=== PATIENT | female | born 1990 | race Caucasian/White ===

== ENCOUNTER 2020-09-11 05:04 | Emergency (ER) | payer BC ==
[~2020-09-11] VITALS: Ht 165.1 cm; Wt 53.1 kg
--- NOTE | 2020-09-11 05:07 | NUR ---
PT AAOX4. BIBRA FROM HOME C/O PALPITATIONS. PLACED IN BED 10 ON MONITOR AND PULSE OX. AWAITING ER MD FOR EVAL AND ORDERS. NO ACUTE DISTRESS NOTED. RR EVEN AND UNLABORED.
--- NOTE | 2020-09-11 05:22 | NUR ---
LINE ESTABLISHED RAC 20G, BLOOD WORK COLLECTED, SENT TO LAB.
[2020-09-11 05:24] LABS: BASOPHILS % (AUTO) 0.7 % (0.0-2.0); EOSINOPHILS % (AUTO) 1.5 % (0.0-6.0); HEMATOCRIT 40 % (33-45); HEMOGLOBIN 13.2 g/dL (11.5-14.8); LYMPHOCYTES # (AUTO) 2.2 K/uL (0.8-4.8); LYMPHOCYTES % (AUTO) 37.2 % (20.0-44.0); MEAN CORPUSCULAR HGB CONC 33 g/dl (31.0-36.0); MEAN CORPUSCULAR VOLUME 92 fL (82-100); MONOCYTES # (AUTO) 0.6 K/uL (0.1-1.30); MONOCYTES % (AUTO) 9.3 % (2.0-12.0); NEUTROPHILS % (AUTO) 51.3 % (43.0-81.0); PLATELET COUNT (AUTO) 230 K/uL (150-450); RED BLOOD CELL COUNT(AUTO) 4.28 MIL/uL (4.0-5.2); WHITE BLOOD COUNT (AUTO) 5.9 K/uL (4.3-11.0)
[2020-09-11] MEDS ORDERED: IV NS 0.9% 1,000 ML BAG IV ONE (05:30)
[2020-09-11 05:32] LABS: CALCIUM, SERUM 8.8 mg/dL (8.5-10.1); CARBON DIOXIDE 28 mmol/L (21-32); CHLORIDE 103 mmol/L (98-107); CREATININE 0.9 mg/dL (0.6-1.3); GLUCOSE 94 mg/dL (74-106); POTASSIUM 3.7 mmol/L (3.5-5.1); SODIUM SERUM 140 mmol/L (136-145); UREA NITROGEN, BLOOD 14 mg/dL (7-18)
[2020-09-11 06:15] VITALS: BP 124/76
--- NOTE | 2020-09-11 06:15 | NUR ---
IV removed. Catheter intact and site benign. Pressure and 4x4 applied to site. No bleeding noted.
--- NOTE | 2020-09-11 06:15 | NUR ---
Patient discharged to home in stable condition. Written and verbal after care instructions given. Patient verbalizes understanding of instruction. Pt stated she feels better, vss.
== END 2020-09-11 06:25 | disposition home or self-care (01) ==
LOC: ER 05:07
DX: R00.2 Palpitations (principal); E86.0 Dehydration
CPT/HCPCS: 36415; 71045; 80048; 84443; 84484; 84703; 85025; 93005; 96360; 99285; J7030